=== PATIENT | female | born 1990 | race Caucasian/White ===

== ENCOUNTER 2017-02-14 23:05 | Emergency (ER) | payer OTHER ==
[2017-02-15] LABS: BASOPHIL 0.2 % (0-2); EOSINOPHIL 1.2 % (0-5); HCT 33.3 % (37.0-47.0); HGB 11.8 g/dl (12.5-16.0); LYMPHOCYTE 20.9 % (15-48); MCHC 35.4 g/dL (32.0-36.0); MCV 81.8 fL (78.0-100.0); MONOCYTE 8.5 % (0-12); MPV 9.5 fL (6.0-9.5); NEUTROPHIL 69.2 % (41-80); PLT 222 K/uL (150-400); RBC 4.07 M/uL (4.20-5.40); WBC 12.4 K/uL (4.0-10.5)
[2017-02-15 00:21] LABS: TROPONIN T < 0.010 ng/mL
[2017-02-15 00:42] LABS: ALBUMIN 3.6 g/dL (3.5-5.0); BILIRUBIN - TOTAL 0.6 mg/dL (0.1-1.0); CREATININE 0.5 mg/dL (0.5-1.0); GLOBULIN (CALCULATION) 2.6 g/dL (2.2-4.2); POTASSIUM 3.6 mmol/L (3.5-5.1); TOTAL PROTEIN 6.2 g/dL (6.4-8.3)
== END 2017-02-15 03:15 | disposition home or self-care (01) ==
LOC: FER 23:05
PROVIDERS: Emergency Medicine Emergency Medical Services
DX: O99.89 Other specified diseases and conditions complicating pregnancy, childbirth and the puerperium (principal); R07.9 Chest pain, unspecified; R06.02 Shortness of breath; O99.282 Endocrine, nutritional and metabolic diseases complicating pregnancy, second trimester; E86.9 Volume depletion, unspecified; Z3A.22 22 weeks gestation of pregnancy
CPT/HCPCS: 36415; 71010; 80053; 82550; 82553; 84484; 85025; 93005